=== PATIENT | female | born 1980 | race African-American/Black ===

== ENCOUNTER 2018-09-21 04:59 | Emergency (ER) | payer BC ==
[2018-09-21 06:46] LABS: APPEARANCE,URINE CLEAR; BILIRUBIN,URINE NEGATIVE (NEGATIVE); COLOR,URINE YELLOW; GLUCOSE, URINE 50 mg/dL (NEGATIVE); KETONES,URINE TRACE mg/dL (NEGATIVE); LEUKOCYTE ESTERASE,URINE NEGATIVE (NEGATIVE); NITRITE,URINE NEGATIVE (NEGATIVE); PROTEIN,URINE NEGATIVE (NEGATIVE)
[2018-09-21] MEDS ORDERED: NORMAL SALINE 1000 ML 1,000 ML IV ONE (06:48)
[2018-09-21] MEDS ORDERED: ONDANSETRON HCL INJ/PF 4 MG/2 ML SDV IV ONE (06:48)
[2018-09-21] MEDS ORDERED: MORPHINE SULFATE 10 MG/ML INJ IV ONE (06:48)
[2018-09-21 06:56] LABS: ABSOLUTE EOSINOPHILS # (AUTO) 0.1 10^3/uL (0.0-0.6); ABSOLUTE LYMPHOCYTES (AUTO) 2.1 10^3/uL (0.5-4.7); ABSOLUTE MONOCYTES (AUTO) 0.5 10^3/uL (0.1-1.4); ABSOLUTE NEUT (AUTO) 3.7 10^3/uL (1.7-8.2); BASOPHILS % (AUTO) 0.5 % (0-2); EOSINOPHILS % (AUTO) 0.9 % (0-6); HEMATOCRIT 36.7 % (36.0-47.0); HEMOGLOBIN 12.3 g/dL (12.0-15.5); LYMPHOCYTES % (AUTO) 33.6 % (13-45); MEAN CORPUSCULAR HEMOGLOBIN 29.6 pg (27.0-33.4); MEAN CORPUSCULAR HGB CONC 33.4 g/dL (32.0-36.0); MEAN CORPUSCULAR VOLUME 88 fl (80-97); MONOCYTES % (AUTO) 7.3 % (3-13); PLATELET COUNT 279 10^3/uL (150-450); RED BLOOD COUNT 4.15 10^6/uL (3.72-5.28); RED CELL DISTRIBUTION WIDTH 14.5 % (11.5-14.0); SEGMENTED NEUTROPHILS % (AUTO) 57.7 % (42-78); TOTAL CELLS COUNTED % (AUTO) 100 %; WHITE BLOOD COUNT 6.3 10^3/uL (4.0-10.5)
--- NOTE | 2018-09-21 07:29 | ER Document Report ---
ED General - General Chief Complaint: Abdominal Problem Stated Complaint: ABDOMINAL PAIN Time Seen by Provider: 09/21/18 06:50 Primary Care Provider: DELFIN HAYDEN FNP-C [Primary Care Provider] - Follow up as needed TRAVEL OUTSIDE OF THE [place] IN LAST 30 DAYS: No - HPI Notes: Patient is a 37-year-old female who presents to the emergency department for evaluation of epigastric and right upper quadrant abdominal pain. It started about 3:00 in the morning. It is a cramping and sharp pain, occasionally radiates around into her back. She notes that last night she did have chicken, skin on. She denies any fevers or chills. She has some mild nausea but no emesis. She has had multiple episodes of loose stool. She has a history of gallstones, states this feels similar. - Related Data Allergies/Adverse Reactions: No Known Allergies Allergy (Unverified 12/03/13 12:36) Past Medical History - General Information source: Patient - Social History Smoking Status: Current Some Day Smoker Drug Abuse: None Family History: Reviewed & Not Pertinent, Other - CHF, end-stage renal disease Patient has suicidal ideation: No Patient has homicidal ideation: No Endocrine Medical History: Reports: Hx Diabetes Mellitus Type 2 Renal/ Medical History: Denies: Hx Peritoneal Dialysis GI Medical History: Reports: Other - Cholelithiasis Past Surgical History: Reports: Hx Section - X3 - Immunizations Hx Diphtheria, Pertussis, Tetanus Vaccination: Yes Review of Systems - Review of Systems Constitutional: No symptoms reported EENT: No symptoms reported Cardiovascular: No symptoms reported Respiratory: No symptoms reported Gastrointestinal: See HPI Genitourinary: No symptoms reported Female Genitourinary: No symptoms reported Musculoskeletal: No symptoms reported Skin: No symptoms reported Neurological/Psychological: No symptoms reported Physical Exam - Vital signs Vitals: Temp Pulse Resp BP Pulse Ox 98.3 F 54 L 20 110/68 99 09/21/18 05:04 09/21/18 05:04 09/21/18 05:04 09/21/18 05:04 09/21/18 05:04 - Notes Notes: Vital signs reviewed, please refer to chart. Head is normocephalic, atraumatic. Pupils equal round, reactive to light. Neck is supple without meningismus. Heart is regular rate and rhythm. Lungs are clear to auscultation bilaterally. Abdomen is soft, moderate tenderness to palpation in the epigastric and right upper quadrant regions with some voluntary guarding but no rebound, normoactive bowel sounds throughout. Extremities without cyanosis, clubbing. Posterior calves are nontender. Peripheral pulses are equal. Skin is warm and dry. Patient is awake, alert, neurological exam is nonfocal. Course - Re-evaluation Re-evalutation: 09/21/18 09:22 Patient presents to the emergency department for evaluation of symptoms consistent with biliary colic. Patient does not look jaundiced, her sclera are anicteric. She does have some significant tenderness, but does not show me any signs of acute cholecystitis. She has no signs of obstruction on her lab work. She is medicated here with morphine and Toradol, is now significantly improved. We talked at length about dietary changes to help minimize her symptoms. I also explained to her, however, that she needs to see a surgeon. She has had multiple episodes of biliary colic. Obstruction or infection would make surgery much more complicated. She voiced understanding to this. I will go ahead and send her on to primary care as well as our on-call surgeon, Dr. Rowe. I will send her home with a small amount of pain medication and nausea medication. She is to return to the emergency department with worsening or new concerning symptoms of any sort. - Vital Signs Vital signs: Temp Pulse Resp BP Pulse Ox 98.3 F 54 L 18 98/64 L 100 09/21/18 05:04 09/21/18 05:04 09/21/18 09:07 09/21/18 09:07 09/21/18 09:07 - Laboratory Result Diagrams: 09/21/18 06:40 09/21/18 07:45 Laboratory results interpreted by me: 09/21/18 09/21/18 09/21/18 06:30 06:40 07:45 RDW 14.5 H Chloride 108 H Glucose 165 H Total Protein 5.7 L Albumin 3.4 L Urine Glucose (UA) 50 H Urine Ketones TRACE H Urine Blood LARGE H Urine Urobilinogen 2.0 H Discharge - Discharge Clinical Impression: Biliary colic Cholelithiasis Qualifiers: Cholelithiasis location: gallbladder Cholecystitis acuity: chronic Biliary obstruction: without biliary obstruction Condition: Stable Disposition: HOME, SELF-CARE Instructions: Abdominal Pain ([facility]), Gallbladder Disease ([facility]) Additional Instructions: Avoid fatty and greasy foods as discussed. Take Vicodin as needed for severe pain, Zofran as needed for nausea. Please watch for dizziness, constipation with the pain medication. You need to follow-up with your primary care provider and surgery for possible cholecystectomy as soon as possible. If you develop fevers, vomiting, increased pain, yellowing of the skin or eyes, or any other new or concerning symptoms, return immediately to the emergency department for reevaluation. Referrals: DELFIN HAYDEN, MANUFACTURING LEAD-C [Primary Care Provider] - Follow up as needed BORA ROWE MD [ACTIVE STAFF] - Follow up as needed
[2018-09-21 08:16] LABS: ALBUMIN 3.4 g/dL (3.5-5.0); ANION GAP 7 (5-19); BLOOD UREA NITROGEN 9 mg/dL (7-20); CALCIUM 8.6 mg/dL (8.4-10.2); CARBON DIOXIDE 25 mmol/L (22-30); CHLORIDE 108 mmol/L (98-107); GLUCOSE 165 mg/dL (75-110); POTASSIUM 4.4 mmol/L (3.6-5.0)
[2018-09-21 08:17] LABS: ALKALINE PHOSPHATASE 90 U/L (38-126); ASPARTATE AMINO TRANSFERASE 20 U/L (14-36); BILIRUBIN,DIRECT 0.2 mg/dL (0.0-0.4); BILIRUBIN,TOTAL 0.2 mg/dL (0.2-1.3); TOTAL PROTEIN 5.7 g/dL (6.3-8.2)
[2018-09-21] MEDS ORDERED: KETOROLAC TROMETHAMINE INJ/PF 30 MG/1 ML SDV IV ONE (08:20)
[2018-09-21 10:17] VITALS: BP 102/63
== END 2018-09-21 10:19 | disposition home or self-care (01) ==
LOC: ER 04:59
DX: K80.70 Calculus of gallbladder and bile duct without cholecystitis without obstruction (principal); R10.13 Epigastric pain; R10.11 Right upper quadrant pain; F17.200 Nicotine dependence, unspecified, uncomplicated; E11.9 Type 2 diabetes mellitus without complications
CPT/HCPCS: 99284; 96361; 96374; 96375; 36415; 83690; 84703; 85025; 80053; 81001; J1885; J2270; J2405; J7030

== ENCOUNTER 2019-03-17 01:47 | Observation (INO) | payer BC ==
[2019-03-17] MEDS ORDERED: KETOROLAC TROMETHAMINE INJ/PF 30 MG/1 ML SDV IV ONE (02:42)
[2019-03-17] MEDS ORDERED: ONDANSETRON HCL INJ/PF 4 MG/2 ML SDV IV ONE (02:43)
[2019-03-17] MEDS ORDERED: NORMAL SALINE 1000 ML 1,000 ML IV ONE (02:43)
[2019-03-17] MEDS ORDERED: MORPHINE SULFATE 10 MG/ML INJ IV ONE (02:43)
--- NOTE | 2019-03-17 02:45 | ER Document Report ---
ED GI/ - General TRAVEL OUTSIDE OF THE [place] IN LAST 30 DAYS: No - Related Data Home Medications: metformin 100 mg q day. trulistia q week <FLOWER KWON - Last Filed: 03/17/19 08:30> <ANGELINA KIM - Last Filed: 03/17/19 08:48> - General Chief Complaint: Upper Abdominal Pain Stated Complaint: GALLBLADDER ISSUES Time Seen by Provider: 03/17/19 02:37 Primary Care Provider: DELFIN HAYDEN FNP-C [COMMUNITY BASED STAFF] - Follow up as needed Notes: Patient is a 38-year-old female that comes to the emergency department for chief complaint of sharp pain in the right upper quadrant, nausea, and she states the pain wraps around her side towards her back on the right side. She states pain started about 2200, has been worsening and constant since then. She denies vomiting. She ate soup with cream and garcia tonight. She states she has been told that her gallbladder is the problem in the past but she is not been seen by a surgeon in follow-up. She has had C-sections, has a history of type 2 diabetes and ADHD, denies medical history otherwise, reports rare alcohol and denies recreational drugs. (FLOWER KWON) - Related Data Allergies/Adverse Reactions: No Known Allergies Allergy (Unverified 12/03/13 12:36) Past Medical History - General Information source: Patient - Social History Smoking Status: Current Every Day Smoker Frequency of alcohol use: None Drug Abuse: None Lives with: Family Family History: Reviewed & Not Pertinent, Other - CHF, end-stage renal disease Patient has suicidal ideation: No Patient has homicidal ideation: No Endocrine Medical History: Reports: Hx Diabetes Mellitus Type 2 Renal/ Medical History: Denies: Hx Peritoneal Dialysis Past Surgical History: Reports: Hx Section - X3 - Immunizations Hx Diphtheria, Pertussis, Tetanus Vaccination: Yes <FLOWER KWON - Last Filed: 03/17/19 08:30> Review of Systems - Review of Systems Constitutional: No symptoms reported EENT: No symptoms reported Cardiovascular: No symptoms reported Respiratory: No symptoms reported Gastrointestinal: See HPI Genitourinary: No symptoms reported Female Genitourinary: No symptoms reported Musculoskeletal: No symptoms reported Skin: No symptoms reported Hematologic/Lymphatic: No symptoms reported Neurological/Psychological: No symptoms reported <FLOWER KWON - Last Filed: 03/17/19 08:30> Physical Exam <FLOWER KWON - Last Filed: 03/17/19 08:30> - Vital signs Vitals: Temp Pulse Resp BP Pulse Ox 97.5 F 74 16 145/91 H 100 03/17/19 01:50 03/17/19 01:50 03/17/19 01:50 03/17/19 01:50 03/17/19 01:50 - Notes Notes: GENERAL: Alert, interactive, occasionally grimacing and appears to be in pain HEAD: Normocephalic, atraumatic. EYES: Pupils equal, round, and reactive to light. Extraocular movements intact. ENT: Oral mucosa moist, tongue midline. Oropharynx unremarkable. Airway patent. LUNGS: Clear to auscultation bilaterally, no wheezes, rales, or rhonchi. No respiratory distress. HEART: Regular rate and rhythm. No murmur ABDOMEN: Very tender in the epigastric and right upper quadrants on exam, left lower quadrant unremarkable, lower abdomen completely benign. Bowel sounds present throughout. EXTREMITIES: Moves all 4 extremities spontaneously. No edema, normal radial and dorsalis pedis pulses bilaterally. No cyanosis. BACK: no cervical, thoracic, lumbar midline tenderness. No saddle anesthesia, normal distal neurovascular exam. Moves all extremities in full range of motion. NEUROLOGICAL: Alert and oriented x3. Normal speech. Cranial nerves II through XII grossly intact. PSYCH: Restless SKIN: Warm, dry, normal turgor. No rashes or lesions noted. (FLOWER KWON) Course - Laboratory Result Diagrams: 03/17/19 02:40 03/17/19 02:40 <FLOWER KWON - Last Filed: 03/17/19 08:30> - Laboratory Result Diagrams: 03/17/19 02:40 03/17/19 02:40 <ANGELINA KIM - Last Filed: 03/17/19 08:48> - Re-evaluation Re-evalutation: Patient initially very uncomfortable in appearance. She has right upper quadrant pain. No CVA tenderness. Unremarkable vital signs. CBC, chemistry, lipase nonspecific and unremarkable. test is negative. Urinalysis unremarkable. Ultrasound showing stones in the gallbladder neck which is mobile. There is no pericholecystic fluid or gallbladder wall thickening. No obstructive findings noted. On reevaluation patient actually is still very uncomfortable in appearance. She states she started to feel better but started to hurt again, she will be remedic ated. 03/17/19 On reevaluation patient is much more comfortable but she still is having some degree of pain. Patient is concerned about going home because of her persistent pain, I am concerned because of her abnormal ultrasound and persistent pain as well. Discussed options with patient, will discuss with general surgery on- call. Discussed with Dr. Gilbert. 03/17/[address] Nowak, general surgery, he will come evaluate the patient. (FLOWER KWON) - Vital Signs Vital signs: Temp Pulse Resp BP Pulse Ox 97.6 F 69 16 106/62 98 03/17/19 05:36 03/17/19 05:36 03/17/19 05:36 03/17/19 05:36 03/17/19 05:36 - Laboratory Laboratory results interpreted by me: 03/17/19 03/17/19 02:40 02:40 RDW 16.3 H Baso % (Auto) 2.4 H Glucose 166 H Discharge <FLOWER KWON - Last Filed: 03/17/19 08:30> - Discharge Admitting Provider: Surgicalist Unit Admitted: Surgical Floor <ANGELINA KIM - Last Filed: 03/17/19 08:48> - Discharge Clinical Impression: Cholelithiasis Qualifiers: Cholelithiasis location: gallbladder Cholecystitis presence: without cholecystitis Biliary obstruction: without biliary obstruction Qualified Code(s): K80.20 - Calculus of gallbladder without cholecystitis without obstruction Abdominal pain Qualifiers: Abdominal location: epigastric Qualified Code(s): R10.13 - Epigastric pain Condition: Stable Disposition: ADMITTED OBSERVATION Referrals: DELFIN HAYDEN FNP-C [COMMUNITY BASED STAFF] - Follow up as needed
[2019-03-17 02:52] LABS: ABSOLUTE BASOPHILS # (AUTO) 0.1 10^3/uL (0.0-0.2); ABSOLUTE EOSINOPHILS # (AUTO) 0.2 10^3/uL (0.0-0.6); ABSOLUTE LYMPHOCYTES (AUTO) 1.9 10^3/uL (0.5-4.7); ABSOLUTE MONOCYTES (AUTO) 0.3 10^3/uL (0.1-1.4); ABSOLUTE NEUT (AUTO) 2.4 10^3/uL (1.7-8.2); BASOPHILS % (AUTO) 2.4 % (0-2); EOSINOPHILS % (AUTO) 3.5 % (0-6); HEMATOCRIT 39.1 % (36.0-47.0); HEMOGLOBIN 13.1 g/dL (12.0-15.5); LYMPHOCYTES % (AUTO) 38.9 % (13-45); MEAN CORPUSCULAR HEMOGLOBIN 29.1 pg (27.0-33.4); MEAN CORPUSCULAR HGB CONC 33.5 g/dL (32.0-36.0); MEAN CORPUSCULAR VOLUME 87 fl (80-97); MONOCYTES % (AUTO) 6.4 % (3-13); PLATELET COUNT 343 10^3/uL (150-450); RED BLOOD COUNT 4.51 10^6/uL (3.72-5.28); RED CELL DISTRIBUTION WIDTH 16.3 % (11.5-14.0); SEGMENTED NEUTROPHILS % (AUTO) 48.8 % (42-78); TOTAL CELLS COUNTED % (AUTO) 100 %
[2019-03-17 03:07] LABS: ALBUMIN 4.2 g/dL (3.5-5.0); ALKALINE PHOSPHATASE 109 U/L (38-126); ANION GAP 8 (5-19); ASPARTATE AMINO TRANSFERASE 23 U/L (14-36); BILIRUBIN,DIRECT 0.2 mg/dL (0.0-0.4); BILIRUBIN,TOTAL 0.4 mg/dL (0.2-1.3); BLOOD UREA NITROGEN 9 mg/dL (7-20); CALCIUM 9.3 mg/dL (8.4-10.2); CARBON DIOXIDE 27 mmol/L (22-30); CHLORIDE 105 mmol/L (98-107); GLUCOSE 166 mg/dL (75-110); POTASSIUM 4.3 mmol/L (3.6-5.0); TOTAL PROTEIN 7.4 g/dL (6.3-8.2)
--- NOTE | 2019-03-17 03:29 | RADIOLOGY REPORT (SQ) ---
CLINICAL HISTORY: sharp RUQ pain COMPARISON: None. TECHNIQUE: US ABDOMEN LIMITED 03/17/2019 2:43 AM [facility] FINDINGS: Liver is normal in size and echotexture. Portal vein is patent. Common bile duct measures 4 mm. Gallbladder is normally distended containing a small a mobile stone within the neck. There is no wall thickening or pericholecystic fluid. Right kidney measures 9.5 cm without hydronephrosis. IMPRESSION: Cholelithiasis without cholecystitis.
[2019-03-17] MEDS ORDERED: HYDROMORPHONE HCL INJ/PF 2 MG/ML AMPULE IV ONE (04:11)
[2019-03-17 04:17] LABS: APPEARANCE,URINE CLEAR; BILIRUBIN,URINE NEGATIVE (NEGATIVE); COLOR,URINE YELLOW; GLUCOSE, URINE NEGATIVE (NEGATIVE); KETONES,URINE NEGATIVE (NEGATIVE); LEUKOCYTE ESTERASE,URINE NEGATIVE (NEGATIVE); NITRITE,URINE NEGATIVE (NEGATIVE); PROTEIN,URINE NEGATIVE (NEGATIVE); URINE SPECIFIC GRAVITY 1.021; UROBILINOGEN,URINE NEGATIVE mg/dL (<2.0)
[2019-03-17] MEDS ORDERED: ONDANSETRON HCL INJ/PF 4 MG/2 ML SDV IV PRN ×2 (08:54→11:33)
[2019-03-17] MEDS ORDERED: NORMAL SALINE 1000 ML 1,000 ML IV PRN ×3 (08:54→13:05)
--- NOTE | 2019-03-17 08:54 | PDOC H&P ---
History of Present Illness Admission Date/PCP: March 17, 2019 YADI REEDER Patient complains of: Right upper quadrant pain History of Present Illness: GILA HERNANDEZ is a 38 year old female, with type 2 diabetes controlled by metformin and insulin, with a several year history of gallbladder attacks, the most recent yesterday evening associated with severe pain in the right upper quadrant and intense nausea. The patient presented to the emergency room with above symptoms, and ultrasound gallbladder was done revealing cholelithiasis without evidence of cholecystitis. Her blood work was within normal limits except for slight elevated fasting blood sugar (166). Past Medical History Endocrine Medical History: Reports: Diabetes Mellitus Type 2 Past Surgical History Past Surgical History: Reports: Section - X3 Social History Lives with: Family Smoking Status: Current Every Day Smoker Electronic Cigarette use?: Yes Family History Family History: Reviewed & Not Pertinent, Other - CHF, end-stage renal disease Family History: Kidney failure, cancer Parental Family History Reviewed: Yes - Answer Children Family History Reviewed: No Sibling(s) Family History Reviewed.: Yes - Kidney failure cancer Medication/Allergy Home Medications: Dextroamphetamine/Amphetamine [Adderall 20 mg Tablet] 1 tab PO BID 12/03/13 Ondansetron [Zofran Odt 4 mg Tablet] 1 - 2 tab PO Q4H PRN #15 tab.rapdis 11/13 03/28 Oxycodone HCl/Acetaminophen [Percocet 5-325 mg Tablet] 1 - 2 tab PO Q4H PRN #15 tablet 12/03/13 Oxycodone HCl/Acetaminophen [Percocet 5-325 mg Tablet] 1 tab PO ASDIR PRN #10 tablet 07/19/15 Promethazine HCl [Phenergan 25 mg Tablet] 25 mg PO Q6H PRN #15 tablet 07/19/15 Sulfamethoxazole/Trimethoprim [Bactrim Ds Tablet] 1 each PO BID #10 tablet 07/19/15 Promethazine HCl [Phenergan 25 mg Tablet] 25 - 50 mg PO ASDIR PRN #12 tablet 12/29/15 Hydrocodone/Acetaminophen [[place] 5-325 mg Tablet] 1 tab PO Q6H PRN #10 tablet 09/21/18 Ondansetron [Zofran Odt 4 mg Tablet] 1 - 2 tab PO Q4H PRN #15 tab.rapdis 09/21/18 Allergies/Adverse Reactions: No Known Allergies Allergy (Unverified 12/03/13 12:36) Physical Exam Vital Signs: Temp Pulse Resp BP Pulse Ox 97.6 F 69 16 106/62 98 03/17/19 05:36 03/17/19 05:36 03/17/19 05:36 03/17/19 05:36 03/17/19 05:36 Intake & Output 03/16/19 03/17/19 03/18/19 06:59 06:59 06:59 Intake Total 1000 Balance 1000 Weight 69.1 kg General appearance: PRESENT: no acute distress, thin, well-developed Head exam: PRESENT: atraumatic Eye exam: PRESENT: EOMI, PERRLA Mouth exam: PRESENT: moist, neck supple Neck exam: PRESENT: full ROM Respiratory exam: PRESENT: clear to auscultation maya Cardiovascular exam: PRESENT: RRR GI/Abdominal exam: PRESENT: hypoactive bowel sounds, Clark's sign - Positive, soft, tenderness - Upper quadrant on deep palpation Rectal exam: PRESENT: deferred Extremities exam: PRESENT: full ROM Musculoskeletal exam: PRESENT: full ROM Neurological exam: PRESENT: alert, awake, oriented to time, CN II-XII grossly intact Psychiatric exam: PRESENT: appropriate affect Skin exam: PRESENT: warm Results Laboratory Results: 03/17/19 02:40 03/17/19 02:40 03/17/19 03/17/19 03/17/19 02:40 02:40 02:40 WBC 5.0 RBC 4.51 Hgb 13.1 Hct 39.1 MCV 87 MCH 29.1 MCHC 33.5 RDW 16.3 H Plt Count 343 Seg Neutrophils % 48.8 Sodium 139.6 Potassium 4.3 Chloride 105 Carbon Dioxide 27 Anion Gap 8 BUN 9 Creatinine 0.60 Est GFR ( Amer) > 60 Glucose 166 H Calcium 9.3 Total Bilirubin 0.4 AST 23 Alkaline Phosphatase 109 Total Protein 7.4 Albumin 4.2 Lipase 137.6 Serum HCG, Qual NEGATIVE Urine Color Urine Appearance Urine pH Ur Specific Hurley Urine Protein Urine Glucose (UA) Urine Ketones Urine Blood Urine Nitrite Ur Leukocyte Esterase Urine WBC (Auto) Urine RBC (Auto) 03/17/19 03:34 WBC RBC Hgb Hct MCV MCH MCHC RDW Plt Count Seg Neutrophils % Sodium Potassium Chloride Carbon Dioxide Anion Gap BUN Creatinine Est GFR ( Amer) Glucose Calcium Total Bilirubin AST Alkaline Phosphatase Total Protein Albumin Lipase Serum HCG, Qual Urine Color YELLOW Urine Appearance CLEAR Urine pH 5.0 Ur Specific [place] 1.021 Urine Protein NEGATIVE Urine Glucose (UA) NEGATIVE Urine Ketones NEGATIVE Urine Blood NEGATIVE Urine Nitrite NEGATIVE Ur Leukocyte Esterase NEGATIVE Urine WBC (Auto) 2 Urine RBC (Auto) 1 Impressions: Abdomen Ultrasound 03/17/19 02:43 IMPRESSION: Cholelithiasis without cholecystitis. Assessment & Plan - Diagnosis (1) Abdominal pain Qualifiers: Abdominal location: epigastric Qualified Code(s): R10.13 - Epigastric pain Is this a current diagnosis for this admission?: Yes (2) Cholelithiasis Qualifiers: Cholelithiasis location: gallbladder Cholecystitis presence: without cholecystitis Biliary obstruction: without biliary obstruction Qualified Code(s): K80.20 - Calculus of gallbladder without cholecystitis without obstruction Is this a current diagnosis for this admission?: Yes - Plan Summary Plan Summary: Assessment: History of multiple biliary colics during the years Recent onset of right upper quadrant pain and nausea Ultrasound of the gallbladder significant for cholelithiasis without cholecystitis Blood work (CBC and CMP) within normal limits Plan: Laparoscopic cholecystectomy, possible open, possible cholangiogram today; procedure, risks, benefits, complications, benefits, explained to the patient, including possibility of bleeding from the liver or injury of the bile ducts which may require transfer to a tertiary center for open repair. Her questions were answered to her satisfaction, she understands all the above, she decides to proceed N.p.o. IV fluids normal saline 1 L bolus and #250 mL/h Rocephin 1 g IV piggyback prior to surgery Admission for observation
[2019-03-17] MEDS ORDERED: DEXTROSE 40% GEL 15 GM TUBE PO PRN ×2 (09:04)
[2019-03-17] MEDS ORDERED: GLUCAGON,HUMAN RECOMB 1 MG INJ IM PRN (09:04)
[2019-03-17] MEDS ORDERED: DEXTROSE 50%-WATER 25 GM/50 ML DISP.SYRIN IV PRN ×2 (09:04)
[2019-03-17] MEDS ORDERED: MORPHINE SULFATE 10 MG/ML INJ IV PRN ×2 (09:11→11:33)
[2019-03-17] MEDS: INSULIN LISPRO 100 UNIT/ML 3 ML VIAL SUBCUT SCH (09:59)
[2019-03-17] MEDS ORDERED: CEFTRIAXONE 2 GM/D5W RTU 2 GM/50 ML RTUPB IV PRN (10:00)
[2019-03-17] MEDS: FAMOTIDINE INJ/PF 20 MG/2 ML SDV IV SCH ×2 (10:15→21:19)
[2019-03-17] MEDS ORDERED: CEFTRIAXONE INJ 1000 MG VIAL ONE (10:57)
[2019-03-17] MEDS ORDERED: PROPOFOL INJ 200 MG/20 ML VIAL IV ONE (10:57)
[2019-03-17] MEDS ORDERED: MIDAZOLAM 2 MG/2 ML INJ ONE (10:57)
[2019-03-17] MEDS ORDERED: FENTANYL CITRATE INJ/PF 100 MCG/2 ML AMPUL ONE (10:57)
[2019-03-17] MEDS ORDERED: PROMETHAZINE HCL INJ 25 MG/1 ML VIAL ONE (10:57)
[2019-03-17] MEDS ORDERED: BUPIVACAINE HCL 0.5 % INJ/PF 30 ML SDV ONE (11:03)
[2019-03-17] MEDS ORDERED: DIPHENHYDRAMINE HCL 50 MG/ML VIAL IV PRN (11:33)
[2019-03-17] MEDS ORDERED: FENTANYL CITRATE INJ/PF 100 MCG/2 ML AMPUL IV PRN ×3 (11:33)
[2019-03-17] MEDS ORDERED: OXYCODONE-ACETAMINOPHEN 5-325 MG TABLET PO PRN ×2 (11:33)
[2019-03-17] MEDS ORDERED: MEPERIDINE HCL/PF INJ 25 MG/1 ML DISP.SYRIN IV PRN (11:33)
[2019-03-17] MEDS ORDERED: BUPIVACAINE HCL 0.5 % INJ/PF 30 ML SDV INJ ONE (11:50)
[2019-03-17] MEDS ORDERED: KETOROLAC TROMETHAMINE 60 MG/2 ML SDV ONE (12:16)
[2019-03-17] MEDS ORDERED: DEXAMETHASONE SOD PHOSPHATE INJ 4 MG/1 ML VIAL ONE (12:16)
[2019-03-17] MEDS ORDERED: ONDANSETRON HCL INJ/PF 4 MG/2 ML SDV ONE (12:16)
--- NOTE | 2019-03-17 12:55 | Operative Report ---
Nonrecallable Operative Report DATE OF SURGERY: 03/17/19 PREOPERATIVE DIAGNOSIS: Symptomatic cholelithiasis; History of biliary colic POSTOPERATIVE DIAGNOSIS: Same OPERATION: Extensive laparoscopic lysis of adhesions; laparoscopic cholecystectomy SURGEON: GLORIA MCDONALD ANESTHESIA: Local - 20 mL half percent Marcaine with epinephrine TISSUE REMOVED OR ALTERED: Gallbladder COMPLICATIONS: None ESTIMATED BLOOD LOSS: Less than 5 mL INTRAOPERATIVE FINDINGS: Cholelithiasis and chronic inflammation of the gallbladder PROCEDURE: The procedure was done in the operating room. The patient was placed in a supine position, general anesthesia induced by endotracheal intubation, the abdomen was prepped and draped in usual fashion. Due to the previous history of intra-abdominal x3, an incision was made in the left upper quadrant along the midclavicular line and a 5 mm port with Optiview adapter and scope was inserted; the peritoneal cavity was inspected and no bowel was seen back today against the anterior abdominal wall. CO2 pneumoperitoneum was obtained, under direct visualization a 5 mm umbilical port was inserted into the peritoneal cavity followed by a 12 mm port which was inserted in the epigastrium; finally, two 5 mm ports were placed in the right lateral quadrant of the abdomen under direct visualization. The patient was placed in steep reverse Trendelenburg position, the right side was elevated, the gallbladder fundus body were found to be severely wrapped by a large amount of omental tissue. This was painstakingly taken down with blunt and cautery dissection which took approximately 45 minutes. Once this was accomplished, the fundus of the gallbladder was grasped and and this was elevated and retroflexed; the cystic neck was identified, grasped, and pulled anterior to the patient's right with exposure of the triangle of Calot. The critical view of safety was obtained by dividing the peritoneal attachments of the gallbladder body both medially and laterally with a hook cautery. When this was accomplished, the hook cautery dissection was con tinued toward the cystic neck. An opening was then obtained posterior to the cystic duct which was enlarged with a peanut dissector and with a right angle dissector. Once the critical view of safety was obtained, the cystic duct was carefully dissected with a hook cautery and a space was developed between the cystic duct and cystic artery with a right angle dissector. Both were then double clipped proximally and distally and divided with scissors. The gallbladder was dissected from the liver bed using hook cautery at high settings, and extracted from the peritoneal cavity with an Endobag through the epigastric port. The pneumoperitoneum was then re-established, the gallbladder fossa was examined and found to be free from blood or bile staining. The right upper quadrant was then irrigated with normal saline until clear. The epigastric fascial defect was closed with a [id number] 0 Vicryl suture, placed with a fascia closure device under direct visualization, and left untied. All instruments were removed, the CO2 pneumoperitoneum was released, and all the ports were removed. The epigastric fascial defect was closed with the previously placed [id number] 0 Vicryl suture, all skin incisions were closed with a 4-0 PDS running subcuticular suture, and Dermabond was applied. The patient tolerated the procedure well, was extubated, and transferred to the recovery room in satisfactory conditions.
[2019-03-17] MEDS: ACETAMINOPHEN 1,000 MG/100 ML RTUPB IV SCH ×2 (14:57→20:52)
[2019-03-17] MEDS ORDERED: KETOROLAC TROMETHAMINE INJ/PF 30 MG/1 ML SDV IV SCH (15:00)
[2019-03-17] MEDS: KETOROLAC TROMETHAMINE INJ/PF 30 MG/1 ML SDV IV SCH ×2 (17:48→23:00)
[2019-03-17] MEDS ORDERED: QUETIAPINE FUMARATE 25 MG TABLET PO PRN ×2 (18:32→18:37)
[2019-03-18] MEDS: ACETAMINOPHEN 1,000 MG/100 ML RTUPB IV SCH ×2 (02:21→09:46)
[2019-03-18] MEDS: KETOROLAC TROMETHAMINE INJ/PF 30 MG/1 ML SDV IV SCH ×2 (06:06→12:43)
[2019-03-18] MEDS ORDERED: METFORMIN HCL 500 MG TABLET PO SCH (08:00)
[2019-03-18] MEDS ORDERED: LISDEXAMFETAMINE DIMESYLATE 60 MG PO SCH (08:00)
[2019-03-18] MEDS: INSULIN LISPRO 100 UNIT/ML 3 ML VIAL SUBCUT SCH (08:06)
[2019-03-18 08:33] LABS: ABSOLUTE LYMPHOCYTES (AUTO) 2.7 10^3/uL (0.5-4.7); ABSOLUTE MONOCYTES (AUTO) 0.6 10^3/uL (0.1-1.4); ABSOLUTE NEUT (AUTO) 4.9 10^3/uL (1.7-8.2); BASOPHILS % (AUTO) 0.2 % (0-2); EOSINOPHILS % (AUTO) 0.1 % (0-6); HEMATOCRIT 35.1 % (36.0-47.0); HEMOGLOBIN 11.8 g/dL (12.0-15.5); LYMPHOCYTES % (AUTO) 32.9 % (13-45); MEAN CORPUSCULAR HEMOGLOBIN 28.8 pg (27.0-33.4); MEAN CORPUSCULAR HGB CONC 33.6 g/dL (32.0-36.0); MEAN CORPUSCULAR VOLUME 86 fl (80-97); MONOCYTES % (AUTO) 7.7 % (3-13); PLATELET COUNT 317 10^3/uL (150-450); RED BLOOD COUNT 4.09 10^6/uL (3.72-5.28); RED CELL DISTRIBUTION WIDTH 15.4 % (11.5-14.0); SEGMENTED NEUTROPHILS % (AUTO) 59.1 % (42-78); TOTAL CELLS COUNTED % (AUTO) 100 %; WHITE BLOOD COUNT 8.2 10^3/uL (4.0-10.5)
[2019-03-18 08:42] LABS: ALBUMIN 3.4 g/dL (3.5-5.0); ALKALINE PHOSPHATASE 75 U/L (38-126); ANION GAP 6 (5-19); ASPARTATE AMINO TRANSFERASE 73 U/L (14-36); BILIRUBIN,DIRECT 0.2 mg/dL (0.0-0.4); BILIRUBIN,TOTAL 0.7 mg/dL (0.2-1.3); BLOOD UREA NITROGEN 5 mg/dL (7-20); CALCIUM 8.7 mg/dL (8.4-10.2); CARBON DIOXIDE 25 mmol/L (22-30); CHLORIDE 105 mmol/L (98-107); GLUCOSE 137 mg/dL (75-110); POTASSIUM 3.9 mmol/L (3.6-5.0); TOTAL PROTEIN 6.4 g/dL (6.3-8.2)
[2019-03-18] MEDS ORDERED: ENOXAPARIN SODIUM INJ 40 MG/0.4 ML DISP.SYRIN SUBCUT SCH (10:00)
[2019-03-18] MEDS ORDERED: CEFTRIAXONE 2 GM/D5W RTU 2 GM/50 ML RTUPB IV SCH (10:00)
[2019-03-18] MEDS: FAMOTIDINE INJ/PF 20 MG/2 ML SDV IV SCH (10:14)
[2019-03-18] MEDS ORDERED: FLUCONAZOLE 100 MG TABLET PO ONE (12:00)
[2019-03-18 13:06] VITALS: BP 117/59
--- NOTE | 2019-03-18 13:11 | PDOC DISCHARGE SUMMARY ---
General - Admit/Disc Date/PCP Admission Date/Primary Care Provider: 03/17/19 08:51 YADI REEDER Discharge Date: 03/18/19 - Discharge Diagnosis Final Diagnosis: Symptomatic cholelithiasis - Assessment Summary: The patient is a healthy 38-year-old female with a several year history of biliary colic's and cholelithiasis. She presented to the emergency room on March 17, 2019 with a complaint of right upper quadrant pain and epigastric pain, and ultrasound of the gallbladder was done revealing cholelithiasis, her blood work was within normal limits including a liver profile. She underwent uneventful laparoscopic cholecystectomy on the same day, her postop course was unremarkable. On the day of discharge, her vital signs are stable, she was tolerating p.o. well, her blood work was within normal limits, a physical exam was unremarkable abdomen soft, not distended, not tender, all incisions were clean, dry, and intact. Discharge orders: Discharge home today March 18, 2019 Follow-up with surgery office in 2 weeks Tylenol and/or Aleve as needed for pain Resume home medications Patient can shower immediately, type of bath in 2 weeks Activities as tolerated without limitations No wound care needed Low-carb, diabetic diet - Additional Information Resuscitation Status: Full Code Discharge Diet: Regular Discharge Activity: Activity As Tolerated, No tub bath - For 2 weeks, the patient can shower in the meantime, Other - Patient can drive and go up and down the stairs Referrals: LYNDA DELAROSA MD [ACTIVE STAFF] - 03/26/19 8:00 am (ANY QUESTIONS OR CONCERNS CALL THE OFFICE.) DELFIN HAYDEN, OLEOMARGARINE MAKER-C [COMMUNITY BASED STAFF] - Follow up as needed Home Medications: Dulaglutide [Trulicity] 0.75 mg SUBCUT TH@1000 03/17/19 Lisdexamfetamine Dimesylate [Vyvanse] 60 mg PO QAM 03/17/19 Metformin HCl [Metformin HCl ER] 1,000 mg PO WSUPPER 03/17/19 Quetiapine Fumarate [Seroquel 25 mg Tablet] 25 mg PO QHS PRN 03/17/19 History of Present Illiness History of Present Illness: GILA HERNANDEZ is a 38 year old female, with type 2 diabetes controlled by metformin and insulin, with a several year history of gallbladder attacks, the most recent yesterday evening associated with severe pain in the right upper quadrant and intense nausea. The patient presented to the emergency room with above symptoms, and ultrasound gallbladder was done revealing cholelithiasis without evidence of cholecystitis. Her blood work was within normal limits except for slight elevated fasting blood sugar (166). Physical Exam Vital Signs: Temp Pulse Resp BP Pulse Ox 98.2 F 70 18 127/72 H 100 03/18/19 11:38 03/18/19 11:38 03/18/19 11:38 03/18/19 11:38 03/18/19 11:38 Intake & Output 03/17/19 03/18/19 03/19/19 06:59 06:59 06:59 Intake Total 1000 1850 150 Output Total 20 Balance 1000 1830 150 Weight 69.1 kg 69.2 kg Results Laboratory Results: WBC 8.2 10^3/uL (4.0-10.5) 03/18/19 07:22 RBC 4.09 10^6/uL (3.72-5.28) 03/18/19 07:22 Hgb 11.8 g/dL (12.0-15.5) L 03/18/19 07:22 Hct 35.1 % (36.0-47.0) L 03/18/19 07:22 MCV 86 fl (80-97) 03/18/19 07:22 MCH 28.8 pg (27.0-33.4) 03/18/19 07:22 MCHC 33.6 g/dL (32.0-36.0) 03/18/19 07:22 RDW 15.4 % (11.5-14.0) H 03/18/19 07:22 Plt Count 317 10^3/uL (150-450) 03/18/19 07:22 Lymph % (Auto) 32.9 % (13-45) 03/18/19 07:22 [place] % (Auto) 7.7 % (3-13) 03/18/19 07:22 Eos % (Auto) 0.1 % (0-6) 03/18/19 07:22 Baso % (Auto) 0.2 % (0-2) 03/18/19 07:22 Absolute Neuts (auto) 4.9 10^3/uL (1.7-8.2) 03/18/19 07:22 Absolute Lymphs (auto) 2.7 10^3/uL (0.5-4.7) 03/18/19 07:22 Absolute Monos (auto) 0.6 10^3/uL (0.1-1.4) 03/18/19 07:22 Absolute Eos (auto) 0.0 10^3/uL (0.0-0.6) 03/18/19 07:22 Absolute Basos (auto) 0.0 10^3/uL (0.0-0.2) 03/18/19 07:22 Seg Neutrophils % 59.1 % (42-78) 03/18/19 07:22 Sodium 136.0 mmol/L (137-145) L 03/18/19 07:22 Potassium 3.9 mmol/L (3.6-5.0) 03/18/19 07:22 Chloride 105 mmol/L (98-107) 03/18/19 07:22 Carbon Dioxide 25 mmol/L (22-30) 03/18/19 07:22 Anion Gap 6 (5-19) 03/18/19 07:22 BUN 5 mg/dL (7-20) L 03/18/19 07:22 Creatinine 0.51 mg/dL (0.52-1.25) L 03/18/19 07:22 Est GFR ( Amer) > 60 (>60) 03/18/19 07:22 Est GFR (MDRD) Non-Af > 60 (>60) 03/18/19 07:22 Glucose 137 mg/dL (75-110) H 03/18/19 07:22 POC Glucose 131 mg/dL (70-110) H 03/18/19 07:55 Calcium 8.7 mg/dL (8.4-10.2) 03/18/19 07:22 Total Bilirubin 0.7 mg/dL (0.2-1.3) 03/18/19 07:22 Direct Bilirubin 0.2 mg/dL (0.0-0.4) 03/18/19 07:22 Neonat Total Bilirubin Not Reportable 03/18/19 07:22 Neonat Direct Bilirubin Not Reportable 03/18/19 07:22 Neonat Indirect Bili Not Reportable 03/18/19 07:22 AST 73 U/L (14-36) H 03/18/19 07:22 ALT 64 U/L (<35) 03/18/19 07:22 Alkaline Phosphatase 75 U/L (38-126) 03/18/19 07:22 Total Protein 6.4 g/dL (6.3-8.2) 03/18/19 07:22 Albumin 3.4 g/dL (3.5-5.0) L 03/18/19 07:22 Lipase 137.6 U/L (23-300) 03/17/19 02:40 Serum HCG, Qual NEGATIVE (NEGATIVE) 03/17/19 02:40 Urine Color YELLOW 03/17/19 03:34 Urine Appearance CLEAR 03/17/19 03:34 Urine pH 5.0 (5.0-9.0) 03/17/19 03:34 Ur Specific [place] 1.021 03/17/19 03:34 Urine Protein NEGATIVE mg/dL (NEGATIVE) 03/17/19 03:34 Urine Glucose (UA) NEGATIVE mg/dL (NEGATIVE) 03/17/19 03:34 Urine Ketones NEGATIVE mg/dL (NEGATIVE) 03/17/19 03:34 Urine Blood NEGATIVE (NEGATIVE) 03/17/19 03:34 Urine Nitrite NEGATIVE (NEGATIVE) 03/17/19 03:34 Urine Bilirubin NEGATIVE (NEGATIVE) 03/17/19 03:34 Urine Urobilinogen NEGATIVE mg/dL (<2.0) 03/17/19 03:34 Ur Leukocyte Esterase NEGATIVE (NEGATIVE) 03/17/19 03:34 Urine WBC (Auto) 2 /HPF 03/17/19 03:34 Urine RBC (Auto) 1 /HPF 03/17/19 03:34 Squamous Epi Cells Auto 2 /HPF 03/17/19 03:34 Urine Mucus (Auto) RARE /LPF 03/17/19 03:34 Urine Ascorbic Acid NEGATIVE (NEGATIVE) 03/17/19 03:34 Urine HCG, Qual Cancelled 03/17/19 03:34 Impressions: Abdomen Ultrasound 03/17/19 02:43 IMPRESSION: Cholelithiasis without cholecystitis.
[2019-03-18] MEDS ORDERED: (PENDING PHARMACY ID) (Metformin Hcl [Metformin Hcl Er] 1,000 MG) PO SCH (17:00)
[2019-03-20] MEDS ORDERED: (PENDING PHARMACY ID) (Dulaglutide [Trulicity] 0.75 MG) SUBCUT SCH (10:00)
== END 2019-03-18 13:25 | disposition home or self-care (01) ==
LOC: ER 01:47 → EH 08:51 → 2N 14:05
PROVIDERS: ADMIT Surgery; ATTEND Surgery
DX: K80.10 Calculus of gallbladder with chronic cholecystitis without obstruction (principal); K66.0 Peritoneal adhesions (postprocedural) (postinfection); E11.9 Type 2 diabetes mellitus without complications; F90.9 Attention-deficit hyperactivity disorder, unspecified type; F17.290 Nicotine dependence, other tobacco product, uncomplicated; Z79.4 Long term (current) use of insulin; Z79.899 Other long term (current) drug therapy
CPT/HCPCS: 99285; 96361; 96374; 96375; 36415 ×2; 82962 ×2; 83690; 84703; 85025 ×2; 80053 ×2; 81001; 88304 ×2; 76705; 00790; 47562; 49329; G0378 ×3; J2250; J3490; J1100; J1885 ×3; J3010; J2270; J1170; J2550; J0696 ×3; J2405; J7030; J2704; S0028 ×2; J0131 ×2; 790